=== PATIENT | male | born 1965 | race Caucasian/White ===

== ENCOUNTER 2016-09-20 11:33 | Emergency (ER) | payer SELFPAY ==
[~2016-09-20] VITALS: Ht 188 cm; Wt 120.0 kg
[2016-09-20 11:36] VITALS: BP 172/98; PULSE 101; RESP 15; TEMP 98.1; O2SAT 97
[2016-09-20] MEDS ORDERED: HYDROmorphone HCL PF 1 MG/ML VIAL IV PUSH ONE ×2 (12:00→12:30)
[2016-09-20] MEDS ORDERED: SODIUM CHLORIDE 0.9% FLUSH 5 ML FLUSH IVF PRN (12:00)
[2016-09-20] MEDS ORDERED: SODIUM CHLOR 0.9% 1000 ML INJ 1,000 ML IV ONE (12:30)
[2016-09-20 12:35] VITALS: BP 124/68; PULSE 84; RESP 16; O2SAT 97
--- NOTE | 2016-09-20 12:43 | RADRPT ---
EXAM DATE/TIME: 09/20/2016 12:23 [facility] COMPARISON: No previous studies available for comparison. INDICATIONS : Evaluate for trauma, truck fell on upper extremities MEDICAL HISTORY : None. SURGICAL HISTORY : None. ENCOUNTER: Initial ACUITY: 1 day PAIN SCORE: 0/10 LOCATION: Bilateral chest FINDINGS: Portable AP view of the chest demonstrates a normal-sized cardiac silhouette. No effusion, consolidat ion, or pneumothorax is visualized. The bones and soft tissues demonstrate no acute abnormality. CONCLUSION: No acute cardiopulmonary abnormality is identified. Irvin Kraus MD on September 20, 2016 at 12:41 Board Certified Radiologist. This report was verified electronically.
--- NOTE | 2016-09-20 12:44 | RADRPT ---
EXAM DATE/TIME: 09/20/2016 12:24 [facility] COMPARISON: No previous studies available for comparison. INDICATIONS : Left shoulder pain, truck fell on upper extremities MEDICAL HISTORY : None. SURGICAL HISTORY : None. ENCOUNTER: Initial ACUITY: 1 day PAIN SCORE: 9/10 LOCATION: Left Shoulder FINDINGS: 4 views of the left shoulder demonstrate no fracture or dislocation. The distal clavicle has been eit her resorbed or partially resected. The visualized surrounding structures demonstrate no acute findin g. CONCLUSION: No acute left shoulder abnormality is identified. Irvin Kraus MD on September 20, 2016 at 12:42 Board Certified Radiologist. This report was verified electronically.
--- NOTE | 2016-09-20 12:45 | RADRPT ---
EXAM DATE/TIME: 09/20/2016 12:28 [facility] COMPARISON: No previous studies available for comparison. INDICATIONS : Left elbow pain, truck fell on upper extremities MEDICAL HISTORY : None. SURGICAL HISTORY : None. ENCOUNTER: Initial ACUITY: 1 day PAIN SCORE: 6/10 LOCATION: Left Elbow FINDINGS: Four views of the left elbow demonstrate no fracture or dislocation. No joint effusion is visualized. No soft tissue abnormality or radiopaque foreign body is identified. CONCLUSION: No acute finding is identified. Irvin Kraus MD on September 20, 2016 at 12:43 Board Certified Radiologist. This report was verified electronically.
--- NOTE | 2016-09-20 12:46 | RADRPT ---
EXAM DATE/TIME: 09/20/2016 12:30 [facility] COMPARISON: No previous studies available for comparison. INDICATIONS : Left hand pain, truck fell on upper extremities MEDICAL HISTORY : None. SURGICAL HISTORY : None. ENCOUNTER: Initial ACUITY: 1 day PAIN SCORE: 4/10 LOCATION: Left Hand FINDINGS: Three views of the left hand demonstrate no fracture or dislocation. Mineralization is within normal limits and there is no significant arthropathy. No radiopaque foreign body is identified. There is so ft tissue swelling of the posterior aspect of the hand. CONCLUSION: Posterior hand soft tissue swelling. No fracture is identified. Irvin Kraus MD on September 20, 2016 at 12:44 Board Certified Radiologist. This report was verified electronically.
[2016-09-20 12:47] LABS: HEMATOCRIT 30.8 % (39.0-51.0); MEAN CORPUSCULAR HEMOGLOBIN 22.6 PG (27.0-34.0); MEAN CORPUSCULAR HGB CONC 30.9 % (32.0-36.0); PLATELET COUNT 215 TH/MM3 (150-450); RED BLOOD COUNT 4.22 MIL/MM3 (4.50-5.90); RED CELL DISTRIBUTION WIDTH 34.3 % (11.6-17.2); WHITE BLOOD COUNT 5.8 TH/MM3 (4.0-11.0)
--- NOTE | 2016-09-20 12:48 | RADRPT ---
EXAM DATE/TIME: 09/20/2016 12:31 [facility] COMPARISON: No previous studies available for comparison. INDICATIONS : Right hand pain, truck fell on upper extremities MEDICAL HISTORY : None. SURGICAL HISTORY : None. ENCOUNTER: Initial ACUITY: 1 day PAIN SCORE: 4/10 LOCATION: Right Hand FINDINGS: Three views the right hand demonstrate no fracture or dislocation. Mineralization is within normal li mits and there is no significant arthropathy. No radiopaque foreign body is identified. There is mild posterior hand soft tissue swelling. CONCLUSION: Mild posterior hand soft tissue swelling. No fracture is visualized. Irvin Kraus MD on September 20, 2016 at 12:45 Board Certified Radiologist. This report was verified electronically.
--- NOTE | 2016-09-20 12:49 | RADRPT ---
EXAM DATE/TIME: 09/20/2016 12:32 [facility] COMPARISON: No previous studies available for comparison. INDICATIONS : Right elbow pain, truck fell on upper extremities MEDICAL HISTORY : None. SURGICAL HISTORY : None. ENCOUNTER: Initial ACUITY: 1 day PAIN SCORE: 2/10 LOCATION: Right Elbow FINDINGS: Four views of the right elbow demonstrate no fracture or dislocation. No joint effusion is visualized . No soft tissue abnormality or radiopaque foreign body is identified. CONCLUSION: No acute finding is identified. Irvin Kraus MD on September 20, 2016 at 12:47 Board Certified Radiologist. This report was verified electronically.
[2016-09-20 12:55] LABS: APTT (PATIENT) 28.3 SEC (24.3-30.1); HEMO FLAGS AUTO DIFF; INTERNATIONAL NORMALIZED RATIO 0.9 RATIO; PROTHROMBIN TIME - PATIENT 10.1 SEC (9.8-11.6)
[2016-09-20 13:08] LABS: ALT (GPT) 15 U/L (12-78); ANION GAP 7 MEQ/L (5-15); AST (GOT) 15 U/L (15-37); BICARBONATE 24.7 MEQ/L (21.0-32.0); BLOOD UREA NITROGEN 9 MG/DL (7-18); CHLORIDE 108 MEQ/L (98-107); GLOMERULAR FILTRATION RATE 96 ML/MIN (>89); MAGNESIUM 2.2 MG/DL (1.5-2.5); POTASSIUM 4.7 MEQ/L (3.5-5.1); SODIUM (NA) 140 MEQ/L (136-145)
[2016-09-20 13:11] LABS: ALKALINE PHOSPHATASE 131 U/L (45-117); TOTAL BILIRUBIN ADULT 0.1 MG/DL (0.2-1.0)
[2016-09-20 13:19] LABS: BANDS 1 % (0-6); EOSINOPHILS 11 % (0-4); MYELOCYTES 10 % (0-0); NEUTROPHIL # MANUAL DIFF 3.6 TH/MM3 (1.8-7.7); POLYS (SEG NEUTROPHILS) 51 % (16-70); WBC DIFF SAMPLE 100
[2016-09-20 13:22] LABS: ACANTHOCYTES 1+ (NORMAL); KERATOCYTES 1+ (NORMAL); OVALOCYTES 1+ (NORMAL); PLATELET ESTIMATE SMEAR NORMAL (NORMAL); SCAN/DIFF FINAL DIFF MANUAL; TARGET CELLS 1+ (NORMAL); TEARDROP RBCS 1+ (NORMAL)
[2016-09-20 13:23] LABS: PLATELET MORPHOLOGY ENLARGED (NORMAL)
[2016-09-20 13:33] VITALS: BP 132/79; PULSE 87; RESP 22; O2SAT 99
[2016-09-20] MEDS ORDERED: oxyCODONE/ACETAMINOPHEN 10 MG/325 MG TAB PO ONE (13:45)
[2016-09-20] MEDS ORDERED: oxyCODONE/ACETAMINOPHEN 5 MG/325 MG TAB PO ONE (14:00)
--- NOTE | 2016-09-20 14:22 | PD ---
HPI Chief Complaint: Injury Time Seen by Provider: 11:58 Travel History International Travel<30 days: No Contact w/Intl Traveler<30days: No Traveled to known affect area: No History of Present Illness HPI Delete PFSH Past Medical History Medical History: Denies Significant Hx Influenza Vaccination: No Past Surgical History Other Surgery: Yes (SHRAPNEL REMOVAL ALL OVER BODY) Social History Alcohol Use: No Tobacco Use: Yes (1.5 PPD) Substance Use: No Allergies-Medications (Allergen,Severity, Reaction): Coded Allergies: No Known Allergies (Unverified , 09/20/16) Reported Meds & Prescriptions Reported Meds & Active Scripts Active Percocet (Oxycodone-Acetaminophen) 10-325 mg Tab 1 Tab PO Q6H PRN Data Data Last Documented VS Vital Signs Date Time Temp Pulse Resp B/P Pulse Ox O2 Delivery O2 Flow Rate FiO2 09/20/16 13:33 87 22 132/79 99 Room Air 09/20/16 11:36 98.1 Orders Electrocardiogram (09/20/16 11:59) Complete Blood Count With Diff (09/20/16 11:59) Comprehensive Metabolic Panel (09/20/16 11:59) Magnesium (Mg) (09/20/16 11:59) Prothrombin Time / Inr (Pt) (09/20/16 11:59) Act Partial Throm Time (Ptt) (09/20/16 11:59) Chest, Single Ap (09/20/16 11:59) Ecg Monitoring (09/20/16 11:59) Bilateral Bp Monitoring (09/20/16 11:59) Iv Access Insert/Monitor (09/20/16 11:59) Oximetry (09/20/16 11:59) Oxygen Administration (09/20/16 11:59) Sodium Chloride 0.9% Flush (Ns Flush) (09/20/16 12:00) Elbow, Complete (4 Vws) (09/20/16 ) Shoulder, Complete (>2vws) (09/20/16 ) Hand, Complete ([id number]) (09/20/16 ) Hand, Complete ([id number]) (09/20/16 ) Elbow, Complete (4 Vws) (09/20/16 ) Hydromorphone Pf Inj (Dilaudid Pf Inj) (09/20/16 12:00) Creatine Kinase (Cpk) (09/20/16 12:12) Sodium Chlor 0.9% 1000 Ml Inj (Ns 1000 M (09/20/16 12:30) Hydromorphone Pf Inj (Dilaudid Pf Inj) (09/20/16 12:30) Oxycodone-Acetamin 10-325 Mg (Percocet 1 (09/20/16 13:45) Oxycodone-Acetamin 5-325 Mg (Percocet (09/20/16 14:00) Labs Laboratory Tests Test 09/20/16 12:35 White Blood Count 5.8 TH/MM3 Red Blood Count 4.22 MIL/MM3 Hemoglobin 9.5 GM/DL Hematocrit 30.8 % Mean Corpuscular Volume 73.0 FL Mean Corpuscular Hemoglobin 22.6 PG Mean Corpuscular Hemoglobin 30.9 % Concent Red Cell Distribution Width 34.3 % Platelet Count 215 TH/MM3 Mean Platelet Volume 9.7 FL Neutrophils (%) (Auto) % Lymphocytes (%) (Auto) % Monocytes (%) (Auto) % Eosinophils (%) (Auto) % Basophils (%) (Auto) % Neutrophils # (Auto) TH/MM3 Lymphocytes # (Auto) TH/MM3 Monocytes # (Auto) TH/MM3 Eosinophils # (Auto) TH/MM3 Basophils # (Auto) TH/MM3 CBC Comment AUTO DIFF Differential Total Cells 100 Counted Neutrophils % (Manual) 51 % Band Neutrophils % 1 % Lymphocytes % 18 % Monocytes % 9 % Eosinophils % 11 % Neutrophils # (Manual) 3.6 TH/MM3 Myelocytes 10 % Differential Comment FINAL DIFF MANUAL Platelet Estimate NORMAL Platelet Morphology Comment ENLARGED Target Cells 1+ Tear Drop Cells 1+ Ovalocytes 1+ Acanthocytes 1+ Keratocytes 1+ Prothrombin Time 10.1 SEC Prothromb Time International 0.9 RATIO Ratio Activated Partial 28.3 SEC Thromboplast Time Sodium Level 140 MEQ/L Potassium Level 4.7 MEQ/L Chloride Level 108 MEQ/L Carbon Dioxide Level 24.7 MEQ/L Anion Gap 7 MEQ/L Blood Urea Nitrogen 9 MG/DL Creatinine 0.84 MG/DL Estimat Glomerular Filtration 96 ML/MIN Rate Random Glucose 99 MG/DL Calcium Level 8.4 MG/DL Magnesium Level 2.2 MG/DL Total Bilirubin 0.1 MG/DL Aspartate Amino Transf 15 U/L (AST/SGOT) Alanine Aminotransferase 15 U/L (ALT/SGPT) Alkaline Phosphatase 131 U/L Total Creatine Kinase 58 U/L Total Protein 6.7 GM/DL Albumin 3.0 GM/DL MDM Scripts Oxycodone-Acetaminophen (Percocet)10-325 mg Tab1 Tab PO Q6H PRN (PAIN) #15 TAB Ref 0 Prov:Yousif He MD 09/20/16 Yousif He MD Sep 20, 2016 14:21 Yousif He MD Sep 20, 2016 14:21
[2016-09-20] MEDS ORDERED: PERC10TA27 PO (14:31)
--- NOTE | 2016-09-20 14:31 | PD ---
HPI Chief Complaint: Injury Time Seen by Provider: 11:58 Travel History International Travel<30 days: No Contact w/Intl Traveler<30days: No Traveled to known affect area: No History of Present Illness HPI Patient is a 51 year old male presents to the er for evaluation of bilateral upper extremity pain. Patient near hysterical on arrival limiting history taking by myself or by triage. He states that the refer unit "pendulum-ed" down and hit him hard in the side. He thinks he broke his left shoulder and right as well. Patient denies head, neck, back, abdomen, pelvis or torso pain. He states he was working on the unit and it slipped down and hit him. Incident just prior to arrival. States pain is fairly intense. PFSH Past Medical History Medical History: Denies Significant Hx Influenza Vaccination: No Past Surgical History Other Surgery: Yes (SHRAPNEL REMOVAL ALL OVER BODY) Social History Alcohol Use: No Tobacco Use: Yes (1.5 PPD) Substance Use: No Allergies-Medications (Allergen,Severity, Reaction): Coded Allergies: No Known Allergies (Unverified , 09/20/16) Reported Meds & Prescriptions Reported Meds & Active Scripts Active Percocet (Oxycodone-Acetaminophen) 10-325 mg Tab 1 Tab PO Q6H PRN Review of Systems Except as stated in HPI: all other systems reviewed are Neg Physical Exam Narrative GENERAL: WD/WN, appears painful. Holding left arm with right. Both arms covered with grease. SKIN: Warm and dry. HEAD: Atraumatic. Normocephalic. No racoons-eyes no stubbs's sign. EYES: Pupils equal and round. No scleral icterus. No injection or drainage. ENT: No nasal bleeding or discharge. Mucous membranes pink and moist. NECK: Trachea midline. No JVD. CARDIOVASCULAR: Regular rate and rhythm. RESPIRATORY: No accessory muscle use. Clear to auscultation. Breath sounds equal bilaterally. GASTROINTESTINAL: Abdomen soft, non-tender, nondistended. Hepatic and splenic margins not palpable. MUSCULOSKELETAL: Extremities without clubbing, cyanosis, or edema. No obvious deformities. No CTLS tenderness nor midline stepoff. This was repeated after pain management and is reliable exam. Left shoulder painful particularly at the AC joint. Minimal bony tenderness at bilateral elbows. Right shoulder minimally tender. Left hand is minimally swollen in the dorsum and tender to touch on the dorsum. Skin is intact over the entire arm and i do not see any bruising. Bilateral upper extremities are covered with grease. NEUROLOGICAL: Awake and alert. No obvious cranial nerve deficits. Motor grossly within normal limits. Five out of 5 muscle strength in the arms and legs. Normal speech. PSYCHIATRIC: Appropriate mood and affect; insight and judgment normal. Data Data Last Documented VS Vital Signs Date Time Temp Pulse Resp B/P Pulse Ox O2 Delivery O2 Flow Rate FiO2 09/20/16 13:33 87 22 132/79 99 Room Air 09/20/16 11:36 98.1 Orders Electrocardiogram (09/20/16 11:59) Complete Blood Count With Diff (09/20/16 11:59) Comprehensive Metabolic Panel (09/20/16 11:59) Magnesium (Mg) (09/20/16 11:59) Prothrombin Time / Inr (Pt) (09/20/16 11:59) Act Partial Throm Time (Ptt) (09/20/16 11:59) Chest, Single Ap (09/20/16 11:59) Ecg Monitoring (09/20/16 11:59) Bilateral Bp Monitoring (09/20/16 11:59) Iv Access Insert/Monitor (09/20/16 11:59) Oximetry (09/20/16 11:59) Oxygen Administration (09/20/16 11:59) Sodium Chloride 0.9% Flush (Ns Flush) (09/20/16 12:00) Elbow, Complete (4 Vws) (09/20/16 ) Shoulder, Complete (>2vws) (09/20/16 ) Hand, Complete ([id number]) (09/20/16 ) Hand, Complete ([id number]) (09/20/16 ) Elbow, Complete (4 Vws) (09/20/16 ) Hydromorphone Pf Inj (Dilaudid Pf Inj) (09/20/16 12:00) Creatine Kinase (Cpk) (09/20/16 12:12) Sodium Chlor 0.9% 1000 Ml Inj (Ns 1000 M (09/20/16 12:30) Hydromorphone Pf Inj (Dilaudid Pf Inj) (09/20/16 12:30) Oxycodone-Acetamin 10-325 Mg (Percocet 1 (09/20/16 13:45) Oxycodone-Acetamin 5-325 Mg (Percocet (09/20/16 14:00) Labs Laboratory Tests Test 09/20/16 12:35 White Blood Count 5.8 TH/MM3 Red Blood Count 4.22 MIL/MM3 Hemoglobin 9.5 GM/DL Hematocrit 30.8 % Mean Corpuscular Volume 73.0 FL Mean Corpuscular Hemoglobin 22.6 PG Mean Corpuscular Hemoglobin 30.9 % Concent Red Cell Distribution Width 34.3 % Platelet Count 215 TH/MM3 Mean Platelet Volume 9.7 FL Neutrophils (%) (Auto) % Lymphocytes (%) (Auto) % Monocytes (%) (Auto) % Eosinophils (%) (Auto) % Basophils (%) (Auto) % Neutrophils # (Auto) TH/MM3 Lymphocytes # (Auto) TH/MM3 Monocytes # (Auto) TH/MM3 Eosinophils # (Auto) TH/MM3 Basophils # (Auto) TH/MM3 CBC Comment AUTO DIFF Differential Total Cells 100 Counted Neutrophils % (Manual) 51 % Band Neutrophils % 1 % Lymphocytes % 18 % Monocytes % 9 % Eosinophils % 11 % Neutrophils # (Manual) 3.6 TH/MM3 Myelocytes 10 % Differential Comment FINAL DIFF MANUAL Platelet Estimate NORMAL Platelet Morphology Comment ENLARGED Target Cells 1+ Tear Drop Cells 1+ Ovalocytes 1+ Acanthocytes 1+ Keratocytes 1+ Prothrombin Time 10.1 SEC Prothromb Time International 0.9 RATIO Ratio Activated Partial 28.3 SEC Thromboplast Time Sodium Level 140 MEQ/L Potassium Level 4.7 MEQ/L Chloride Level 108 MEQ/L Carbon Dioxide Level 24.7 MEQ/L Anion Gap 7 MEQ/L Blood Urea Nitrogen 9 MG/DL Creatinine 0.84 MG/DL Estimat Glomerular Filtration 96 ML/MIN Rate Random Glucose 99 MG/DL Calcium Level 8.4 MG/DL Magnesium Level 2.2 MG/DL Total Bilirubin 0.1 MG/DL Aspartate Amino Transf 15 U/L (AST/SGOT) Alanine Aminotransferase 15 U/L (ALT/SGPT) Alkaline Phosphatase 131 U/L Total Creatine Kinase 58 U/L Total Protein 6.7 GM/DL Albumin 3.0 GM/DL [facility] Medical Decision Making Medical Screen Exam Complete: Yes Emergency Medical Condition: Yes Interpretation(s) EKG shows normal sinus rhythm and normal axis and normal R-wave progression. No concerning ST T changes intervals within normal limites. This is a normal EKG. Differential Diagnosis Extremity injury, fracture, dislocation, strain, contusion. Narrative Course Patient roomed in ER. He certainly appears uncomfortable. Initially this limits history as he is bordering on hysterical on arrival. Initial workup ordered includes cadet scan but after additional history it is quite apparent that only his extremities suffered blows. What he describes is that the refer unit on the front of the tractor trailer was attached at the top but free at the bottom to provide access for him to work on it, it slipped and landed primarily on his left shoulder and his right shoulder impacted the wall of the tractor trailer. There was no apparent injury to the chest/abd/pel nor head, nor neck. Xrays are negative and his pain is much better under control after medications. Discussed ROM exercises and return to ED criteria. Cadet scan is not indicated at this time. Cspine cleared by [employer] and head by [facility] CT head. Diagnosis Primary Impression: Injury of left shoulder Qualified Code: S49.92XA - Injury of left shoulder, initial encounter Additional Impression: AC separation Qualified Code: S43.102A - AC separation, left, initial encounter Med/Other Pt SpecificInfo: Prescription(s) given Scripts Oxycodone-Acetaminophen (Percocet)10-325 mg Tab1 Tab PO Q6H PRN (PAIN) #15 TAB Ref 0 Prov:Yousif He MD 09/20/16 Disposition: 01 DISCHARGE HOME Condition: Stable Yousif He MD Sep 20, 2016 14:31
--- NOTE | 2016-09-21 16:38 | EKG ---
Date Performed: 09/20/2016 Time Performed: 12:43:46 PTAGE: 51 years EKG: Sinus rhythm NORMAL ECG NO PREVIOUS TRACING DOCTOR: Zenaida Montanez Interpretating Date/Time 09/21/2016 16:36:13
== END 2016-09-20 14:43 | disposition home or self-care (01) ==
LOC: NEPA 11:33
DX: S43.102A Unspecified dislocation of left acromioclavicular joint, initial encounter (principal); M25.522 Pain in left elbow; M25.521 Pain in right elbow; M79.641 Pain in right hand; W20.8XXA Other cause of strike by thrown, projected or falling object, initial encounter; Y93.89 Activity, other specified
CPT/HCPCS: 71010; 73030; 73080; 73130; 80053; 82550; 83735; 85007; 85027; 85610; 85730; 93005; 96361; 96374; 99284; J1170; J7030